=== PATIENT | female | born 1995 | race Caucasian/White ===

== ENCOUNTER 2016-08-29 12:41 | Emergency (ER) | payer OTHER ==
[~2016-08-29] VITALS: Ht 154.9 cm; Wt 75.0 kg
[2016-08-29] MEDS ORDERED: IBUPROFEN 800 MG TABLET PO ONE (14:15)
[2016-08-29 14:49] VITALS: BP 118/69
== END 2016-08-29 14:52 | disposition home or self-care (01) ==
LOC: EMS 12:44
DX: S93.402A Sprain of unspecified ligament of left ankle, initial encounter (principal); F17.210 Nicotine dependence, cigarettes, uncomplicated; W01.0XXA Fall on same level from slipping, tripping and stumbling without subsequent striking against object, initial encounter; Y93.89 Activity, other specified; Y92.34 Swimming pool (public) as the place of occurrence of the external cause; Y99.8 Other external cause status
CPT/HCPCS: 81025; 99284

== ENCOUNTER 2017-01-30 14:43 | Emergency (ER) | payer OTHER ==
[~2017-01-30] VITALS: Ht 154.9 cm; Wt 72.7 kg
[2017-01-30 16:44] VITALS: BP 101/78
[2017-01-30] MEDS ORDERED: HYDROCODONE/ACETAMINOPHEN 5-325 MG TABLET PO ONE (17:00)
[2017-01-30] MEDS ORDERED: SULFAMETHOX/TRIMETH DS 800-160 MG/TABLET PO ONE (17:00)
[2017-01-30] MEDS ORDERED: CEPHALEXIN MONOHYDRATE 500 MG CAPSULE PO ONE (17:00)
== END 2017-01-30 17:40 | disposition home or self-care (01) ==
LOC: EMS 14:46
DX: L03.115 Cellulitis of right lower limb (principal)
CPT/HCPCS: 99284